=== PATIENT | female | born 1955 | race Caucasian/White ===

== ENCOUNTER 2022-04-27 15:47 | Emergency (ER) | payer BC, SELFPAY ==
--- NOTE | 2022-04-27 16:14 | XR_ITS ---
PROCEDURE INFORMATION: Exam: XR Left Knee Exam date and time: 04/27/2022 4:55 PM Age: 66 years old Clinical indication: Pain; Knee; Left; Additional info: Fall TECHNIQUE: Imaging protocol: Radiologic exam of the Left knee. Views: 3 views. COMPARISON: CR XR TIBIA FIBULA LT 2V 04/27/2022 4:54 PM FINDINGS: Bones/joints: No acute fracture or dislocation. Joint spaces are well preserved.No significant arthritic deformities. Tiny fabella noted. No significant knee joint effusion visible. There are no lytic skeletal lesions seen. Soft tissues: Mild soft tissue swelling. No radiopaque foreign bodies. No pathologic soft tissue calcification. Other findings: Overlying clothing artifacts. IMPRESSION: No acute fracture or dislocation.
--- NOTE | 2022-04-27 16:14 | XR_ITS ---
PROCEDURE INFORMATION: Exam: XR Left Ankle Exam date and time: 04/27/2022 4:51 PM Age: 66 years old Clinical indication: Pain; Lower leg; Left; Additional info: Fall TECHNIQUE: Imaging protocol: Radiologic exam of the Left ankle. Views: 3 or more views. COMPARISON: CR XR FOOT LT MIN 3V 04/27/2022 4:49 PM FINDINGS: Bones/joints: No acute fracture or dislocation. No significant arthritic deformities at the ankle joint. There are no lytic skeletal lesions seen. Tiny plantar calcaneal spur. Bones appear slightly demineralized. Soft tissues: Mild periarticular swelling.No radiopaque foreign bodies. No pathologic soft tissue calcification. IMPRESSION: 1. No acute fracture or dislocation. 2. Mild periarticular swelling. 3. Tiny plantar calcaneal spur.
--- NOTE | 2022-04-27 16:14 | XR_ITS ---
PROCEDURE INFORMATION: Exam: XR Left Femur Exam date and time: 04/27/2022 4:57 PM Age: 66 years old Clinical indication: Pain; Hip; Left; Additional info: Fall TECHNIQUE: Imaging protocol: Radiologic exam of the Left femur. Views: 2 views. COMPARISON: No relevant prior studies available. FINDINGS: Bones/joints: The left femur appears intact and normally aligned.There are no lytic skeletal lesions seen. Degenerative enthesophytes of the greater trochanter of the femur. Tiny fabella noted at the posterior knee. Curvilinear radiolucency projected over the pubic symphysis on the left on series 2 appears to be an overlying bowel gas shadow rather than a true fracture, no fracture line is seen in this area on the other views. Soft tissues: No radiopaque foreign bodies. No pathologic soft tissue calcification. IMPRESSION: 1. No acute fracture or dislocation. 2. Degenerative enthesopathy of the greater trochanter of the left femur.
--- NOTE | 2022-04-27 16:14 | XR_ITS ---
PROCEDURE INFORMATION: Exam: XR Left Foot Exam date and time: 04/27/2022 4:49 PM Age: 66 years old Clinical indication: Pain; Foot; Left; Additional info: Fall TECHNIQUE: Imaging protocol: Radiologic exam of the Left foot. Views: 3 or more views. COMPARISON: No relevant prior studies available. FINDINGS: Bones/joints: Prominent hallux valgus deformity with 1st metatarsal head bunion formation. Arthritis at the 1st MTP joint, subcortical cystic changes in the 1st metatarsal. Lateral subluxation of the 1st proximal phalanx at the joint. 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 Bones of the foot appear mildly demineralized. Mild pes planus deformity is suggested on the lateral view, but this would be more accurately evaluated with weight-bearing. Tiny plantar calcaneal spur. Small navicular spurs at the talonavicular and navicular-cuneiform joints seen on the lateral view. Soft tissues: No radiopaque foreign bodies. No pathologic soft tissue calcification. IMPRESSION: 1. No acute fracture or dislocation. 2. Prominent hallux valgus deformity, 1st metatarsal head bunion formation, arthritis at the 1st MTP joint, lateral subluxation of the 1st proximal phalanx. 3. 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 4. Additional nonemergency and chronic-appearing findings as above.
--- NOTE | 2022-04-27 16:14 | XR_ITS ---
PROCEDURE INFORMATION: Exam: XR Left Hip Exam date and time: 04/27/2022 4:59 PM Age: 66 years old Clinical indication: Hip pain; Left hip; Additional info: Fall TECHNIQUE: Imaging protocol: Radiologic exam of the Left hip. Views: 2 or 3 views hip with pelvis when performed. COMPARISON: CR XR FEMUR LT 2V 04/27/2022 4:57 PM FINDINGS: Bones/joints: Bones appear intact and normally aligned with normal mineralization. Degenerative enthesophytes of the greater trochanters of both femurs. Minimal superior hip joint space narrowing bilaterally. Minimal spurring of the medial left femur head seen on series 2. There are no lytic skeletal lesions seen. Soft tissues: No acute findings in the soft tissues at the left hip. Vasculature: Tiny rounded calcifications in the lower pelvis bilaterally are probably phleboliths, less likely would be urinary tract stones. IMPRESSION: 1. No acute fracture or dislocation. 2. Mild degenerative changes, as above.
--- NOTE | 2022-04-27 16:14 | XR_ITS ---
PROCEDURE INFORMATION: Exam: XR Left Humerus Exam date and time: 04/27/2022 5:12 PM Age: 66 years old Clinical indication: Pain; Upper arm; Left; Additional info: Fall. Technologist note: Had to use box to hold patient's arm up. It showed up in the x-ray a small amount. TECHNIQUE: Imaging protocol: Radiologic exam of the Left humerus. Views: 2 or more views. COMPARISON: No relevant prior studies available. FINDINGS: Bones/joints: The left humerus appears intact and normally aligned, as visualized. The distal tip of the humerus at the elbow joint is partially clipped off the AP view.There are no lytic skeletal lesions seen. No significant arthritic deformities as visualized. Soft tissues: Overlying external artifacts projected over the distal upper arm as noted by the technologist, limiting evaluation of the soft tissues. No acute findings in the soft tissues in the upper aspect of the arm. IMPRESSION: No acute fracture or dislocation, as visualized.
--- NOTE | 2022-04-27 16:14 | XR_ITS ---
PROCEDURE INFORMATION: Exam: XR Left Tibia and Fibula Exam date and time: 04/27/2022 4:54 PM Age: 66 years old Clinical indication: Pain; Ankle; Left; Additional info: Fall TECHNIQUE: Imaging protocol: Radiologic exam of the Left tibia and fibula. Views: 2 views. COMPARISON: CR XR ANKLE LT MIN 3V 04/27/2022 4:51 PM FINDINGS: Bones/joints: No acute fracture or dislocation. Tiny fabella noted at the posterior knee. Minimal spurs of the tibial spines.There are no lytic skeletal lesions seen. Mild chronic appearing cortical-periosteal thickening of the fibular diaphysis which has the appearance of chronic stress reaction or old healed injury. For additional ankle findings please see the ankle x-ray report. Soft tissues: No radiopaque foreign bodies. No pathologic soft tissue calcification. IMPRESSION: No acute fracture or dislocation.
[2022-04-27 16:16] VITALS: BP 149/92; PULSE 83; RESP 16; TEMP 37; O2SAT 98; BMI 28.8
--- NOTE | 2022-04-27 16:21 | EXP.UTC ---
Discharge Plan Disposition Patient Disposition: Home, Self-Care Condition: Good Referrals Follow up/Referrals: Didier Jay JR, MD [Physician] - See instructions Maddy William APRN [Primary Care Provider] - See instructions Activity Restrictions/Add. Instructions Additional Instructions/Restrictions: Rest the extremity, Elevate the extremity as tolerated while you are resting. Take ibuprofen for pain if you can take it. If not, then take tylenol. Follow up with Dr. Jay (orthopedics). Sometimes there can be fractures that don't show up well on the first set of x-rays.I put in a referral but you need to call his office and schedule an appointment. Follow up with your regular doctor. GO TO THE ER FOR ANY WORSENING SYMPTOMS Clinical Impressions Clinical Impression: Fall, Sprain of ankle, left, Left shoulder pain, Pain in left arm, Left knee pain Instructions Patient Instructions: Ankle Sprain, DI for Ankle Sprain, DI for Contusion Discharge ED Provider: Antoni Addison [facility] [place] HPI General Stated complaint: ao fall 04/26, left ankle/leg/arm pain Mode of Arrival: Ambulatory Source of Information: Patient Limitations: No Limitations Time Seen by Provider: 04/27/22 16:21 HEENT Symptoms (Recalled from RN notes): No Resp Symptoms (Recalled from RN notes): No Skin Symptoms (Recalled from RN notes): No MS Symptoms (Recalled from RN notes): Yes Functional Status (Recalled from RN notes): n/a History of Present Illness Provider Complaint: pt comes in with c/o fall yesterday on the left side of her pain. pain is from upper arm all the way down to foot on left side of body Related Data Allergies Allergy/AdvReac Type Severity Reaction Status Date / Time meperidine [From Demerol] Allergy Verified 04/27/22 16:19 Worker's Comp Is this a Worker's Comp case?: No PFSH PFSH Social History Smoking Status: Former smoker alcohol intake: never current occupational status: employed Travel in the last 8 weeks: None ROS Obtained: Yes All systems reviewed & no additional complaints except as documented Constitutional Constitutional: Denies chills and Denies fever(s) Musculoskeletal Musculoskeletal: Reports as per HPI Integumentary/Breasts Skin/Breast: Denies redness, Denies rash and Denies wounds Neurologic Neurologic: Denies paresthesias Physical Exam General General appearance: alert and in no apparent distress Head Head exam: atraumatic, normocephalic and normal inspection Eye Eye exam: Present normal appearance, PERRL and EOMI ENT ENT exam: Present normal exam, normal oropharynx, mucous membranes moist, TM's normal bilaterally and normal external ear exam Neck Neck exam: Present normal inspection, full ROM and trachea midline; Absent meningismus or lymphadenopathy Chest Chest inspection: Present normal inspection and symmetric chest wall rise; Absent tenderness Respiratory Respiratory exam: Present normal lung sounds bilaterally; Absent respiratory distress Cardiovascular Cardiovascular exam: Present regular rate and normal rhythm; Absent JVD Abdominal Exam Abdominal exam: Present soft and normal bowel sounds; Absent distention, tenderness or guarding Extremities Exam Extremities exam: Present normal capillary refill; Absent calf tenderness Expanded Upper Extremity Exam Left: Shoulder exam: Present full ROM and tenderness; Absent swelling, abrasion, laceration, ecchymosis, deformity, crepitus, dislocation, erythema or tenderness over AC joint Arm exam: Present normal inspection and full ROM; Absent tenderness Elbow exam: Present normal inspection and full ROM; Absent tenderness Forearm/Wrist exam: Present normal inspection and full ROM Hand exam: Present normal inspection and full ROM; Absent tenderness Neuromotor exam: Normal wrist extension and thumb opposition Neurosensory exam: Normal radial nerve and ulnar
[2022-04-27 18:28] VITALS: BP 149/92; PULSE 83; RESP 16; TEMP 37
== END 2022-04-27 18:29 | disposition home or self-care (01) ==
PROVIDERS: Emergency Provider Nurse Practitioner Family; PCP Nurse Practitioner Family
DX: M79.602 Pain in left arm (principal); M25.562 Pain in left knee; M25.512 Pain in left shoulder; W19.XXXA Unspecified fall, initial encounter; Z88.8 Allergy status to other drugs, medicaments and biological substances
CPT/HCPCS: 73060; 73502; 73552; 73562; 73590; 73610; 73630; 99214; G0463

== ENCOUNTER → 2022-10-29 08:30 | Outpatient (CLI) | payer MEDICARE, BC, SELFPAY ==
--- NOTE | 2022-10-29 09:05 | XR_ITS ---
FINAL REPORT CLINICAL HISTORY: Foot Pain patient states she was diagnosed with complex regional pain syndrome FINDINGS: 3 views of the left foot were obtained. There is no acute fracture or dislocation. There is hallux valgus deformity. There are mild degenerative changes. There is pes planus deformity. IMPRESSION: No acute process. Reviewed, Interpreted and Dictated by Jacques Moy III, MD Transcribed by Sudeep Durand Authenticated and [facility]
--- NOTE | 2022-10-29 09:05 | XR_ITS ---
FINAL REPORT CLINICAL HISTORY: Foot Pain patient states she was diagnosed with complex regional pain syndrome FINDINGS: 3 views of the right foot were obtained. There is no acute fracture or dislocation. There is hallux valgus deformity. There are mild degenerative changes. There is pes planus deformity. IMPRESSION: No acute process. Reviewed, Interpreted and Dictated by Jacques Moy III, MD Transcribed by Sudeep Durand Authenticated and [facility]
--- NOTE | 2022-10-29 09:11 | MM_ITS ---
PROCEDURE INFORMATION: Exam: MG Bilateral Screening 3D Mammography Exam date and time: 10/29/2022 9:25 AM Age: 66 years old Clinical indication: Screening examination TECHNIQUE: Imaging protocol: Bilateral Screening tomosynthesis and 2D mammography including computer-aided detection (CAD) when performed. COMPARISON: MG MM MAMMO DIGITAL SINGH SCREEN BILAT 10/04/2021 12:53 PM FINDINGS: MAMMOGRAPHY: Breast composition: There are scattered areas of fibroglandular density. Mass: None. Architectural distortion: None. Calcifications: No suspicious calcifications. Asymmetric density: None. Skin thickening: None. Axillary adenopathy: None. IMPRESSION: No mammographic evidence of malignancy. Annual screening is recommended unless otherwise clinically indicated. ASSESSMENT: BI-RADS Category 1: Negative
[2022-10-29 09:30] LABS: Basophils % 0.7 % (0.1-2.0); Eosinophils # 0.2 K/mm3 (0.0-0.4); Eosinophils % 3.8 % (0.1-12.0); Hematocrit 42.3 % (37.0-47.0); Hemoglobin 14.1 g/dL (12.2-16.2); Lymphocytes # 1.7 K/mm3 (0.7-4.5); Lymphocytes % 31.4 % (10-50); Mean Corpuscular HGB Conc 33.3 g/dL (31.8-35.4); Mean Corpuscular Hemoglobin 30.1 pg (27.0-31.2); Mean Corpuscular Volume 90.4 fl (81-99); Mean Platelet Volume 7.9 fl (7.4-10.4); Monocytes # 0.4 K/mm3 (0.1-1.0); Monocytes % 7.2 % (1.7-9.3); Neutrophils # 3.1 K/mm3 (1.8-7.8); Neutrophils % 56.9 % (37.0-80.0); Platelet Count 295 K/mm3 (142-424); Red Blood Count 4.68 M/mm3 (4.20-5.40); Red Cell Distribution Width 12.6 % (11.5-17.5); White Blood Count 5.5 K/mm3 (4.8-10.8)
[2022-10-29 10:30] LABS: Alanine Aminotransferase 26 U/L (12-78); Albumin Level 4.6 g/dl (3.5-5.0); Albumin/Globulin Ratio 1.8 (1.1-1.8); Alkaline Phosphatase 123 U/L (38-126); Anion Gap 10.3 mEq/L (5-15); Aspartate Amino Transferase 33 U/L (14-36); Bilirubin,Total 0.5 mg/dl (0.2-1.3); Blood Urea Nitrogen 15 mg/dl (7-17); Calcium 9.3 mg/dl (8.4-10.2); Carbon Dioxide 27 mmol/L (22.0-30.0); Chloride 102 mmol/L (98-107); Cholesterol 259 mg/dl (140-200); Estimated Glomerular Filt Rate 101 ml/min (>60); GFR (African American) 122 ML/MIN (>60); Globulin 2.5 g/dL (1.3-3.2); Glucose 91 mg/dl (74-100); Potassium 4.3 mmoL/L (3.5-5.1); Sodium 135 mmol/L (136-145); Total Protein,Serum 7.1 g/dl (6.3-8.2); Triglycerides 131 mg/dl (30-150); VLDL Cholesterol 26 mg/dL (0-40)
[2022-10-29 10:41] LABS: Direct LDL Cholesterol 116.83 mg/dL (100-129)
[2022-10-29 11:04] LABS: HDL Cholesterol 130 mg/dl (40-60)
[2022-10-29 11:10] LABS: 25-OH Vitamin D, Total 49.3 ng/mL (30-100)
[2022-10-29 11:11] LABS: Thyroid Stimulating Hormone 0.05 uIU/mL (0.465-4.68)
[2022-10-29 11:47] LABS: Vitamin B12 770 pg/mL (239-931)
[2022-10-29 11:48] LABS: Folate > 20.00 ng/mL
== END ==
PROVIDERS: PCP Nurse Practitioner Family; Visit Provider Nurse Practitioner Family
DX: Z12.31 Encounter for screening mammogram for malignant neoplasm of breast; E03.9 Hypothyroidism, unspecified; M89.9 Disorder of bone, unspecified; R20.2 Paresthesia of skin; M79.671 Pain in right foot; M79.672 Pain in left foot
CPT/HCPCS: 36415; 73630; 77063; 77067; 80053; 80061; 82306; 82607; 82746; 84443; 85025

== ENCOUNTER → 2022-12-03 09:13 | Outpatient (CLI) | payer MEDICARE, BC, SELFPAY ==
--- NOTE | 2022-12-03 09:29 | XR_ITS ---
FINAL REPORT TECHNIQUE: Bone densitometry calculations of the lumbar spine and left hip were obtained. CLINICAL HISTORY: menopausal FINDINGS: Using L1-4, the bone mineral density of the spine is 1.234 g/cm2, corresponding to T-score of 1.7. Using the left hip, the bone mineral density of the femoral neck is 0.794 g/cm2, corresponding to a T-score of -0.5. Using the right hip, the bone mineral density of the femoral neck is 0.822 g/cm2, corresponding to a T-score of -0.2. NOTE: T-score: Standard deviation compared with peak bone mass of young adult mean. *Following the recommendations of the International Society of Bone densitometry, classification of hip BMD is based on the lower of two T-scores; total hip or femoral neck. IMPRESSION: Normal bone mineral density of the lumbar spine and hip. FRAX was not reported because all of the T-scores are at or above -1.0 Reviewed, Interpreted and Dictated by Jacques Moy III, MD Transcribed by Paula Green Authenticated and [facility]
== END ==
PROVIDERS: PCP Nurse Practitioner Family; Visit Provider Nurse Practitioner Family
DX: Z78.0 Asymptomatic menopausal state (principal); Z13.820 Encounter for screening for osteoporosis
CPT/HCPCS: 77080

== ENCOUNTER 2022-12-20 14:00 | Outpatient (RCR) | payer OTHER, SELFPAY ==
--- NOTE | 2022-11-13 14:35 | HMH.PTOPEV ---
PT Outpatient Evaluation Rehab PT Outpatient Evaluation Start: 11/13/22 10:56 Freq: Status: Active Protocol: Document 11/13/22 10:57 JAZMIN (Rec: 11/13/22 14:34 JAZMIN [id number]) E-signed By Taina Richardson, PT Outpatient Therapy Subjective History Subjective History Pt is a 67 y/o female referred to PT for CRPS. 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 Pt reports this led to a fracture of the lateral malleoli, tissue damage and ligament damage that was repaired surgically. Pt reports she was attending PT following surgery when dry needling of the lower leg was implemented then after treatment she started having shooting pain from the left lateral ankle to the hip. Pt also reports she started having a constant tingling sensation that radiates from bottom/top of the L foot around her toes and the L lateral ankle to the hip and the left wrist to the top of the L shoulder laterally. Pt reports after this she was diagnosed with CRPS. Pt reports excessive sweating at times than at other she is very cold. Pt also reports history of hair loss of the LLE and dry patches or skin which have since improved. Pt reports after her diagnosis, her PT started stretching her which hurt during but then she was able to perform more activities such as the bike and machines. Pt denies having recent imaging of the brain or LE/UE and also denies having an EMG/NCV test. Pt reports she has tried 3 nerve blocks which were unsuccessful
--- NOTE | 2022-12-13 15:28 | HMH.RHREAS ---
Rehab Reassessment Rehab OP Re-assessment Start: 11/13/22 10:56 Freq: Status: Active Protocol: Document 12/13/22 15:04 MARCETYLOR (Rec: 12/13/22 15:28 JAZMIN [id number]) E-signed By Taina Richardson PT Rehab Re-assessment Subjective Subjective Pt reports she feels 30% improved since starting PT in regards to overall endurance and balance. Pt reports she has good and bad days. Pt reports her ankle feels more stable and she denies recent falls. 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 Pt reports she continues to have LUE/LLE burning and tingling sensations rated 8/10 at worst and tremors of the L ankle. Pt reports she is having difficulties with insurance approving an MRI/CT scan for her L ankle recommended by her gun tester as well. Pt reports she has also seen an opthalmologist who was concerned with a spot on her L eye. Objective Objective Notes Unable to assess L ankle AROM this date due to being at the pool for an aquatic session LUE MMT: flex and abd 4- with collapsing weakness noted. Elbow flexion/extension 4+/5 grossly LUE PROM with mild tone noted at end ranges Assessment Progress Assessment Progressing as Expected Assessment Notes Pt has attended 6 PT visits consisting of 2 aquatic sessions, MLD, aerobic exercises, UE/LE stretching and strengthening. Education of stress relaxation techniques with encouragement to see a psychotherapist has also been provided. Pt has fair-good tolerance to physical therapy treatment
== END 2022-12-20 14:05 | disposition home or self-care (01) ==
LOC: PT 14:00
PROVIDERS: PCP Nurse Practitioner Family; Visit Provider Nurse Practitioner Family
DX: M79.662 Pain in left lower leg (principal); G90.50 Complex regional pain syndrome I, unspecified
CPT/HCPCS: 97010; 97110; 97112; 97113; 97140; 97163; 97164; 97530

== ENCOUNTER → 2022-12-21 09:29 | Outpatient (CLI) | payer MEDICARE, MEDICAID, SELFPAY ==
--- NOTE | 2022-12-21 09:29 | MR_ITS ---
FINAL REPORT CLINICAL HISTORY: left ankle pain. COMPLEX REGIONAL PAIN SYNDROME. INSTABILITY IN ANKLE FINDINGS: Multiplanar MR imaging of the left ankle was performed without contrast. There are mild degenerative changes. The bony structures are intact without evidence of fracture, bone bruise or marrow edema. No osteochondral lesion is identified. There is thickening of the anterior talofibular ligament, may represent sequela of prior partial tear. The flexor and extensor tendons are intact. The posterior plantar aponeurosis is intact. No significant joint effusion is seen. The musculature is intact. There is no evidence of soft tissue mass or cyst. IMPRESSION: Thickening of the anterior talofibular ligament, may represent sequela of prior partial tear. Reviewed, Interpreted and Dictated by Jacques Moy III, MD Transcribed by Paula Green Authenticated and [facility]
--- NOTE | 2022-12-21 10:43 | CT_ITS ---
FINAL REPORT TECHNIQUE: Thin section axial CT images with coronal and sagittal reformats were performed. This study was performed with techniques to keep radiation doses as low as reasonably achievable (ALARA). Individualized dose reduction techniques using automated exposure control or adjustment of mA and/or kV according to the patient''s size were employed. CLINICAL HISTORY: Left foot pain COMPARISON: None FINDINGS: Hallux valgus deformity is noted. There are no fractures. Moderate degenerative change of the first MTP. Mild degenerative change of the midfoot. There are no masses or fluid collections. There are no soft tissue abnormalities. IMPRESSION: Degenerative changes with no acute bony abnormality. Reviewed, Interpreted and Dictated by Jacques Moy III, MD Transcribed by Yris Phillips Authenticated and . [facility]
--- NOTE | 2022-12-21 10:43 | CT_ITS ---
FINAL REPORT TECHNIQUE: Thin section axial CT images with coronal and sagittal reformats were performed. This study was performed with techniques to keep radiation doses as low as reasonably achievable (ALARA). Individualized dose reduction techniques using automated exposure control or adjustment of mA and/or kV according to the patient''s size were employed. CLINICAL HISTORY: Right foot pain COMPARISON: none FINDINGS: Hallux valgus deformity is noted. There are no fractures. There are mild and moderate degenerative changes, worst involving the midfoot and first MTP. There are multiple subchondral cysts present. There are no masses or fluid collections. There are no soft tissue abnormalities. IMPRESSION: Degenerative changes without acute bony abnormality. Subchondral cyst. Reviewed, Interpreted and Dictated by Jacques Moy III, MD Transcribed by Yris Phillips Authenticated and [facility]
== END ==
PROVIDERS: PCP Nurse Practitioner Family; Visit Provider Podiatrist
DX: M25.372 Other instability, left ankle (principal); S93.402A Sprain of unspecified ligament of left ankle, initial encounter; M19.071 Primary osteoarthritis, right ankle and foot; M19.072 Primary osteoarthritis, left ankle and foot; M20.11 Hallux valgus (acquired), right foot; M20.12 Hallux valgus (acquired), left foot; M20.41 Other hammer toe(s) (acquired), right foot; M20.42 Other hammer toe(s) (acquired), left foot; M21.41 Flat foot [pes planus] (acquired), right foot; M21.42 Flat foot [pes planus] (acquired), left foot
CPT/HCPCS: 73700; 73721

== ENCOUNTER 2022-12-24 09:28 | Outpatient (CLI) | payer MEDICARE, MEDICAID, SELFPAY ==
[2022-12-24 09:50] VITALS: BP 127/72; PULSE 89; RESP 22; O2SAT 99
[2022-12-24 09:58] VITALS: BMI 28.5
[2022-12-24 10:18] LABS: Basophils % 0.5 % (0.1-2.0); Eosinophils # 0.2 K/mm3 (0.0-0.4); Eosinophils % 2.8 % (0.1-12.0); Hematocrit 46.4 % (37.0-47.0); Lymphocytes # 1.6 K/mm3 (0.7-4.5); Lymphocytes % 25.2 % (10-50); Mean Corpuscular HGB Conc 32.4 g/dL (31.8-35.4); Mean Corpuscular Hemoglobin 29.3 pg (27.0-31.2); Mean Corpuscular Volume 90.5 fl (81-99); Mean Platelet Volume 8.1 fl (7.4-10.4); Monocytes # 0.5 K/mm3 (0.1-1.0); Monocytes % 7.7 % (1.7-9.3); Neutrophils # 3.9 K/mm3 (1.8-7.8); Neutrophils % 63.7 % (37.0-80.0); Platelet Count 282 K/mm3 (142-424); Red Blood Count 5.13 M/mm3 (4.20-5.40); Red Cell Distribution Width 13.1 % (11.5-17.5); White Blood Count 6.2 K/mm3 (4.8-10.8)
[2022-12-24 10:19] LABS: Chloride 104 mmol/L (98-107); Potassium 3.5 mmoL/L (3.5-5.1); Sodium 136 mmol/L (136-145)
[2022-12-24 10:22] LABS: Anion Gap 14.5 mEq/L (5-15); Blood Urea Nitrogen 12 mg/dl (7-17); Calcium 10.2 mg/dl (8.4-10.2); Carbon Dioxide 21 mmol/L (22.0-30.0); Creatinine Clearance Estimated 73 mL/min (50-200); Estimated Glomerular Filt Rate 100 ml/min (>60); GFR (African American) 121 ML/MIN (>60); Glucose 105 mg/dl (74-100)
[2022-12-24 10:50] VITALS: BP 132/68; PULSE 84; RESP 20; O2SAT 99
== END 2022-12-24 11:45 | disposition home or self-care (01) ==
LOC: INF 09:29
PROVIDERS: PCP Nurse Practitioner Family; Visit Provider Nurse Practitioner Family
DX: R11.2 Nausea with vomiting, unspecified (principal); E86.0 Dehydration
CPT/HCPCS: 80048; 85025; 96360; J2405

== ENCOUNTER → 2023-01-15 08:34 | Outpatient (POV) | payer MEDICARE, MEDICAID, SELFPAY | PROVIDERS: Visit Provider Dermatology | DX: Z00.00 Encounter for general adult medical examination without abnormal findings (principal) ==